=== PATIENT | female | born 1980 | race Caucasian/White ===

== ENCOUNTER → 2018-08-16 13:08 | Outpatient (CLI) | payer OTHER, SELFPAY | PROVIDERS: Visit Provider Physician Assistant | DX: J02.9 Acute pharyngitis, unspecified (principal) | CPT/HCPCS: 87070 ==

== ENCOUNTER 2020-05-26 10:01 | Emergency (ER) | payer OTHER, SELFPAY ==
[2020-05-26] VITALS (8 sets, daily range): BP systolic 128–186; BP diastolic 80–118; PULSE 95–118; RESP 10–37; TEMP 37.1; O2SAT 98–100; BMI 20.9
--- NOTE | 2020-05-26 10:20 | ED.ARRPALP ---
HPI - Arrhythmia/Palpitations <MYCHAL Morfin - Last Filed: 05/26/20 15:52> General Chief Complaint: Arrhythmia/Palpitations Stated Complaint: High Blood pressure.. Time Seen by Provider: 05/26/20 10:03 Source: patient Mode of arrival: Ambulatory History of Present Illness HPI narrative: 39yo female presents to the ED for increased anxiety, shaking, heart racing, and nauseated for the past 4 days. 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 She states she feels like her heart is beating fast, does not feel extra beats. She feels nauseated whenever she tries to eat, she states she has lost 6 lb in the past 4 days because she has not been hungry. Patient states in the past she had pre hypertension but after losing weight that problem disappeared. She has had some increased stress over the past 3 weeks due to son who has been in the , however she does not feel that this week is particularly more stressful. She denies any cardiac or thyroid history. Patient denies any fevers, chills, vomiting, abdominal pain, dizziness, cough, shortness of breath, or any other concerns. She states she is currently taking an oral control pill, unsure of the name. She denies any history of blood clots or long trips. Related Data Home Medications Medication Instructions Recorded Confirmed [ control] #0 02/08/16 08/16/18 propranolol 40 mg PO #0 08/26/16 08/16/18 Allergies Allergy/AdvReac Type Severity Reaction Status Date / Time amoxicillin [AMOXICILLIN] Allergy Mild SORES IN Verified 05/26/20 10:14 MOUTH meloxicam [MELOXICAM] Allergy Unknown Verified 05/26/20 10:14 Penicillins [PENICILLINS] Allergy Unknown Verified 05/26/20 10:14 Review of Systems <MYCHAL Morfin - Last Filed: 05/26/20 15:52> Review of Systems Narrative: REVIEW OF SYSTEMS: GENERAL: Denies fevers. HENT: No head trauma or hearing loss. CARDIOVASCULAR: Reports heart is beating fast, see HPI. RESPIRATORY: No shortness of breath. No cough. GASTROINTESTINAL: No nausea, vomiting, diarrhea, or constipation. MUSCULOSKELETAL: No weakness or injury. INTEGUMENTARY: No rash. Patient History <MYCHAL Morfin - Last Filed: 05/26/20 15:52> Medical History No significant medical problems Social History Smoking Status: Former smoker Smoking Status: Former smoker alcohol intake frequency: 0-2 drinks per day Alcohol type: wine Substance Use Type: does not use Exam <MYCHAL Morfin - Last Filed: 05/26/20 15:52> Initial Vital Signs Initial Vital Signs: Vital Signs Pulse Rate 116 H 05/26/20 10:10 Blood Pressure 162/97 H 05/26/20 10:10 Pulse Oximetry 100 05/26/20 10:10 PHYSICAL EXAMINATION: GENERAL: Awake and alert. Anxious appearing, tearful. HENT: Normocephalic, atraumatic. EYES: Conjunctiva pink, sclera white, no periorbital swelling. No discharge. CHEST: Normal to inspection and without deformities. CARDIOVASCULAR: S1 and S2 sounds normal. Increased rate, regular rhythm, no murmurs, clicks, or bruits. RESPIRATORY: Normal respiratory rate, trachea midline, airway patent. No stridor, nasal flaring or accessory muscle use. Able to speak in full sentences. Lungs are clear in all bo[place] without wheeze, rhonchi, or crackles. MUSCULOSKELETAL: Normal gait and coordination. Equal tone and mass bilaterally. EXTREMITIES: Moves all extremities. SKIN: Warm, dry, soft, appropriate color for ethnicity. No lesions, rashes, or wounds to visualized areas. NEURO: Alert and Oriented X 3. Good coordination. No ataxia or cognitive issues. PSYCH: Appropriate affect and mood. <Denzel Mast DO - Last Filed: 05/26/20 17:23> Initial Vital Signs Initial Vital Signs: Vital Signs Pulse Rate 116 H 05/26/20 10:10 Blood Pressure 162/97 H 05/26/20 10:10 Pulse Oximetry 100 05/26/20 10:10 Scores <MYCHAL Morfin - Last Filed: 05/26/20 15:52> PERC Score Age greater than or equal to 50 years: No Heart rate greater than or equal to 100 bpm: Yes Room Air O2 Sat less than 95%: No Unilateral leg swelling: No Recent trauma or surgery: No Hemoptysis: No Prior PE or DVT: No Hormone Use: Yes Total PERC Score: 2 Wells' Criteria for PE Clinical signs and symptoms of DVT: No PE is #1 Dx or equally likely: No Heart rate > 100: Yes Immobilization at least 3 days or surg in previous 4 weeks: No History of PE or DVT: No Hemoptysis: No Malignancy w/Treatment within 6 months or palliative: No Wells' PE Score total: 1.5 Course <Stacey HarrisMYCHAL - Last Filed: 05/26/20 15:52> Course Course Narrative: Over the course of her stay in the emergency department patient states she felt better. She states she felt more relaxed and her heart was not racing. Patient was updated on laboratory results which were normal, patient states she feels much better knowing this. Orders Ordered: ED Orders 05/26/20 10:17 Complete Blood Count AUTO DIFF Stat Comprehensive Metabolic Panel Stat D Dimer Stat Lipase Stat Thyroid Stimulating Hormone Stat Troponin & CK Cardiac Panel Stat 05/26/20 10:19 XR chest 1V Stat EKG-12 Lead Stat Discontinued Medications Sodium Chloride (Normal Saline 0.9%) 1,000 mls @ 1,000 mls/hr IV BOLUS ONE Stop: 05/26/20 11:18 Last Infusion: 05/26/20 11:35 Dose: 0 mls/hr Documented by: Admin: 05/26/20 10:28 Dose: 1,000 mls/hr Documented by: ENMANUEL Consultations Consultation #1: Patient staffed with Dr. Mast discussed test, test results, plan of care. Vital Signs Vital signs: Vital Signs - 8 hr 05/26/20 10:10 05/26/20 10:12 05/26/20 10:28 Temperature 98.7 F Pulse Rate 116 H 118 H 104 H Respiratory Rate 20 37 H Blood Pressure 162/97 H 186/118 H 162/97 H Pulse Oximetry 100 98 98 05/26/20 10:30 05/26/20 10:52 05/26/20 11:00 Temperature Pulse Rate 107 H 105 H 98 H Respiratory Rate 10 L Blood Pressure 160/87 H Pulse Oximetry 99 100 99 05/26/20 11:01 05/26/20 11:35 Temperature Pulse Rate 102 H 95 H Respiratory Rate Blood Pressure 142/80 H 128/89 Pulse Oximetry 99 99 <Denzel Mast DO - Last Filed: 05/26/20 17:23> Orders Ordered: ED Orders 05/26/20 10:17 Complete Blood Count AUTO DIFF Stat Comprehensive Metabolic Panel Stat D Dimer Stat Lipase Stat Thyroid Stimulating Hormone Stat Troponin & CK Cardiac Panel Stat 05/26/20 10:19 XR chest 1V Stat EKG-12 Lead Stat Discontinued Medications Sodium Chloride (Normal Saline 0.9%) 1,000 mls @ 1,000 mls/hr IV BOLUS ONE Stop: 05/26/20 11:18 Last Infusion: 05/26/20 11:35 Dose: 0 mls/hr Documented by: Admin: 05/26/20 10:28 Dose: 1,000 mls/hr Documented by: ENMANUEL Vital Signs Vital signs: Vital Signs - 8 hr 05/26/20 10:10 05/26/20 10:12 05/26/20 10:28 Temperature 98.7 F Pulse Rate 116 H 118 H 104 H Respiratory Rate 20 37 H Blood Pressure 162/97 H 186/118 H 162/97 H Pulse Oximetry 100 98 98 05/26/20 10:30 05/26/20 10:52 05/26/20 11:00 Temperature Pulse Rate 107 H 105 H 98 H Respiratory Rate 10 L Blood Pressure 160/87 H Pulse Oximetry 99 100 99 05/26/20 11:01 05/26/20 11:35 Temperature Pulse Rate 102 H 95 H Respiratory Rate Blood Pressure 142/80 H 128/89 Pulse Oximetry 99 99 MDM - Arrhythmia/Palpitations <MYCHAL Morfin - Last Filed: 05/26/20 15:52> Medical Records Attestation: I reviewed the patient's medical records. Lab Data Attestation: I reviewed the patient's lab results. Result diagrams: 05/26/20 10:17 05/26/20 10:17 Labs: Lab Results 05/26/20 05/26/20 05/26/20 Range/Units 10:17 10:17 10:17 WBC 9.4 (4.5-11.0) X10^3/uL RBC 4.69 (4.0-5.2) X10^6/uL Hgb 14.7 (12.0-16.0) g/dL Hct 43.7 (36-46) % MCV 93.2 (80-100) fL MCH 31.4 (26-34) PG MCHC 33.7 (30-36) % RDW 12.0 (11.6-14.8) % Plt Count 294 (150-400) X10^3/uL Neut % (Auto) 66.8 (50-75) % Lymph % (Auto) 25.4 (25-40) % Isabela % (Auto) 6.6 (3-14) % Eos % (Auto) 0.5 L (2-4) % Baso % (Auto) 0.7 (0-2) % Neut # (Auto) 6300 (7299-3563) /uL Lymph # (Auto) 2400 (9081-1804) /uL Isabela # (Auto) 600 (0-900) /uL Eos # (Auto) 0 (0-450) /uL Baso # (Auto) 100 (0-100) /uL D-Dimer < 200 (<230) ng/mL Sodium 135 L (137-145) mmol/L Potassium 3.9 (3.4-5.1) mmol/L Chloride 100 (98-107) mmol/L Carbon Dioxide 27 (22-32) mmol/L BUN 14 (7-17) mg/dL Creatinine 0.74 (0.52-1.04) mg/dL Estimated GFR > 60.0 (>60) mL/min BUN/Creatinine Ratio 18.9 (6-22) Glucose 123 H (70-100) mg/dL Calcium 10.4 H (8.4-10.2) mg/dL Total Bilirubin 1.3 (0.2-1.3) mg/dL AST 33 (14-36) IU/L ALT 26 (<35) IU/L Alkaline Phosphatase 76 (38-126) U/L Total Creatine Kinase 106 (30-135) U/L CK-MB (CK-2) 0.71 (<2.37) ng/mL CK-MB (CK-2) Rel Index 0.7 L (1.5-5.0) % Troponin I < 0.012 (0.01-0.034) ng/mL Total Protein 8.8 H (6.3-8.2) g/dL Albumin 5.1 H (3.5-5.0) g/dL Globulin 3.7 (1.7-4.1) g/dL Albumin/Globulin Ratio 1.4 (1.0-2.8) Lipase 106 (23-300) U/L TSH (0.47-4.68) uIU/mL 05/26/20 Range/Units 10:17 WBC (4.5-11.0) X10^3/uL RBC (4.0-5.2) X10^6/uL Hgb (12.0-16.0) g/dL Hct (36-46) % MCV (80-100) fL MCH (26-34) PG MCHC (30-36) % RDW (11.6-14.8) % Plt Count (150-400) X10^3/uL Neut % (Auto) (50-75) % Lymph % (Auto) (25-40) % Isabela % (Auto) (3-14) % Eos % (Auto) (2-4) % Baso % (Auto) (0-2) % Neut # (Auto) (9700-5516) /uL Lymph # (Auto) (2649-6862) /uL Isabela # (Auto) (0-900) /uL Eos # (Auto) (0-450) /uL Baso # (Auto) (0-100) /uL D-Dimer (<230) ng/mL Sodium (137-145) mmol/L Potassium (3.4-5.1) mmol/L Chloride (98-107) mmol/L Carbon Dioxide (22-32) mmol/L BUN (7-17) mg/dL Creatinine (0.52-1.04) mg/dL Estimated GFR (>60) mL/min BUN/Creatinine Ratio (6-22) Glucose (70-100) mg/dL Calcium (8.4-10.2) mg/dL Total Bilirubin (0.2-1.3) mg/dL AST (14-36) IU/L ALT (<35) IU/L Alkaline Phosphatase (38-126) U/L Total Creatine Kinase (30-135) U/L CK-MB (CK-2) (<2.37) ng/mL CK-MB (CK-2) Rel Index (1.5-5.0) % Troponin I (0.01-0.034) ng/mL Total Protein (6.3-8.2) g/dL Albumin (3.5-5.0) g/dL Globulin (1.7-4.1) g/dL Albumin/Globulin Ratio (1.0-2.8) Lipase (23-300) U/L TSH 0.653 (0.47-4.68) uIU/mL Urine Dip Bedside Urine Glucose 100 mg/dl Bedside Urine Bilirubin - Negative Bedside Urine Ketone + 15 Urine Specific [place] 1.030 Bedside Urine Occult Blood - Negative Bedside Urine pH 6.0 Bedside Urine Protein +/- 15 Bedside Urine Urobilinogen - Negative Bedside Urine Nitrite - Negative Bedside Urine Leukocytes - Negative Esterase Imaging Data Chest x-ray: Radiologist's Impresson: [address] [id number] ReportSigned Patient: Emerita Brito EMR#: [id number]: [id number]:[id number]/Sex: 39 / FDate of Service: 05/26/20Loc: EDAccession Number: [id number] Procedure: XR chest 1V Ordering Provider: Stacey Harris PROCEDURE: XR CHEST 1V INDICATIONS: chest pain TECHNIQUE: One view of the chest was acquired. COMPARISON: None. FINDINGS: Surgical changes and devices: None. Lungs and pleura: On this examination that is presumably performed supine, no large pneumothorax or large pleural effusions are seen. No focal areas of lung consolidation are seen. Mediastinum: Mediastinal contours appear normal. Heart size is normal. Bones and chest wall: No suspicious bony lesions. Overlying soft tissues appear unremarkable. IMPRESSION: Portable chest within normal limits. Dictated by: David Doyle M.D. on 05/26/2020 at 9:40 Approved by: David Doyle M.D. on 05/26/2020 at 9:40 ECG Data Interpretation: 1017: Sinus rhythm, rate 83, MO interval 138, QTC 418. No ST elevation or ST depression. T-wave inversion noted in V1. No ectopy EKG also viewed by Dr. Mast per protocol. MDM Narrative Medical decision making narrative: 39-year-old female, fairly healthy, presents emergency department for feeling ?wound up in that her heart is racing. I suspect this is most likely related to anxiety given current situation. May also be related to thyroid function however, TSH is on the low end of normal at 0.653, which does not require emergency treatment at this time. Discussed with patient that she should follow up with her PCP regarding this as further testing may be needed. Patient initially presented with tachycardia, D-dimer ordered which was negative. She is lower risk, this is sufficient to help rule out DVT as PERC score is 1. Additionally, heart rate decreased to within normal limits after administration of fluid and hearing normal test results. Less likely ACS as EKG is non-remarkable, chest x-ray negative, troponin is negative. Additionally, patient did not have any chest pain. No ectopy seen on EKG. No signs of infection such as white count, pain, or fevers. Less concern for acute abdominal etiology given lack of abdominal pain, no vomiting, and tachycardia returning to normal after fluids and reassurance. Return precautions given for new or worsening symptoms. She was encouraged to follow up closely with her PCP. Patient was agreeable to plan, verbalized understanding. <Denzel Mast, DO - Last Filed: 05/26/20 17:23> Lab Data Labs: Lab Results 05/26/20 05/26/20 05/26/20 Range/Units 10:17 10:17 10:17 WBC 9.4 (4.5-11.0) X10^3/uL RBC 4.69 (4.0-5.2) X10^6/uL Hgb 14.7 (12.0-16.0) g/dL Hct 43.7 (36-46) % MCV 93.2 (80-100) fL MCH 31.4 (26-34) PG MCHC 33.7 (30-36) % RDW 12.0 (11.6-14.8) % Plt Count 294 (150-400) X10^3/uL Neut % (Auto) 66.8 (50-75) % Lymph % (Auto) 25.4 (25-40) % Isabela % (Auto) 6.6 (3-14) % Eos % (Auto) 0.5 L (2-4) % Baso % (Auto) 0.7 (0-2) % Neut # (Auto) 6300 (3655-0690) /uL Lymph # (Auto) 2400 (9914-9016) /uL Isabela # (Auto) 600 (0-900) /uL Eos # (Auto) 0 (0-450) /uL Baso # (Auto) 100 (0-100) /uL D-Dimer < 200 (<230) ng/mL Sodium 135 L (137-145) mmol/L Potassium 3.9 (3.4-5.1) mmol/L Chloride 100 (98-107) mmol/L Carbon Dioxide 27 (22-32) mmol/L BUN 14 (7-17) mg/dL Creatinine 0.74 (0.52-1.04) mg/dL Estimated GFR > 60.0 (>60) mL/min BUN/Creatinine Ratio 18.9 (6-22) Glucose 123 H (70-100) mg/dL Calcium 10.4 H (8.4-10.2) mg/dL Total Bilirubin 1.3 (0.2-1.3) mg/dL AST 33 (14-36) IU/L ALT 26 (<35) IU/L Alkaline Phosphatase 76 (38-126) U/L Total Creatine Kinase 106 (30-135) U/L CK-MB (CK-2) 0.71 (<2.37) ng/mL CK-MB (CK-2) Rel Index 0.7 L (1.5-5.0) % Troponin I < 0.012 (0.01-0.034) ng/mL Total Protein 8.8 H (6.3-8.2) g/dL Albumin 5.1 H (3.5-5.0) g/dL Globulin 3.7 (1.7-4.1) g/dL Albumin/Globulin Ratio 1.4 (1.0-2.8) Lipase 106 (23-300) U/L TSH (0.47-4.68) uIU/mL 05/26/20 Range/Units 10:17 WBC (4.5-11.0) X10^3/uL RBC (4.0-5.2) X10^6/uL Hgb (12.0-16.0) g/dL Hct (36-46) % MCV (80-100) fL MCH (26-34) PG MCHC (30-36) % RDW (11.6-14.8) % Plt Count (150-400) X10^3/uL Neut % (Auto) (50-75) % Lymph % (Auto) (25-40) % Isabela % (Auto) (3-14) % Eos % (Auto) (2-4) % Baso % (Auto) (0-2) % Neut # (Auto) (1844-7135) /uL Lymph # (Auto) (3620-9523) /uL Isabela # (Auto) (0-900) /uL Eos # (Auto) (0-450) /uL Baso # (Auto) (0-100) /uL D-Dimer (<230) ng/mL Sodium (137-145) mmol/L Potassium (3.4-5.1) mmol/L Chloride (98-107) mmol/L Carbon Dioxide (22-32) mmol/L BUN (7-17) mg/dL Creatinine (0.52-1.04) mg/dL Estimated GFR (>60) mL/min BUN/Creatinine Ratio (6-22) Glucose (70-100) mg/dL Calcium (8.4-10.2) mg/dL Total Bilirubin (0.2-1.3) mg/dL AST (14-36) IU/L ALT (<35) IU/L Alkaline Phosphatase (38-126) U/L Total Creatine Kinase (30-135) U/L CK-MB (CK-2) (<2.37) ng/mL CK-MB (CK-2) Rel Index (1.5-5.0) % Troponin I (0.01-0.034) ng/mL Total Protein (6.3-8.2) g/dL Albumin (3.5-5.0) g/dL Globulin (1.7-4.1) g/dL Albumin/Globulin Ratio (1.0-2.8) Lipase (23-300) U/L TSH 0.653 (0.47-4.68) uIU/mL Urine Dip Bedside Urine Glucose 100 mg/dl Bedside Urine Bilirubin - Negative Bedside Urine Ketone + 15 Urine Specific [place] 1.030 Bedside Urine Occult Blood - Negative Bedside Urine pH 6.0 Bedside Urine Protein +/- 15 Bedside Urine Urobilinogen - Negative Bedside Urine Nitrite - Negative Bedside Urine Leukocytes - Negative Esterase Discharge Plan Departure Patient Disposition: Home Clinical Impression: Heart palpitations Activity Restrictions/Additional Instructions: Thank you for entrusting me with your care today. As discussed, your chest x-ray, urine, and EKG are non-remarkable. There are no signs of infection, cardiac issues, electrolyte abnormalities, signs of blood clots, or signs of digestive organ issues. Your thyroid hormone was slightly low but still within normal limits at 0.653. I suggest you follow-up with your primary care provider in the next 1-2 weeks for further evaluation. Return emergency department for any new or worsening symptoms. Prescriptions: No Action [ control] Qty: 0 RF: 0 propranolol 40 MG tablet 40 mg PO Qty: 0 RF: 0 <Denzel Mast DO - Last Filed: 05/26/20 17:23> Cosign ED Attending Cosignature Attestation: I was immediately available in the department for consultation. This documentation has been reviewed and I agree with assessment and plan. Supervised by Denzel Mast DO
--- NOTE | 2020-05-26 10:20 | PC.NURSE ---
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 patient reports since friday feeling her heart rate was too fast, unable to eat lost 6lbs this week. Reports feeling scatter brained I feel like I have had 20 shots of coffee. Patient states no new stressors since Friday but has had increase stress regarding her son who is marine [employer]. Denies chest pain or SOB.
[2020-05-26 10:26] LABS: Add Manual Diff / Slide Review NO; Basophils Absolute Auto 100 /uL (0-100); Basophils Percent Auto 0.7 % (0-2); Eosinophils Absolute Auto 0 /uL (0-450); Eosinophils Percent Auto 0.5 % (2-4); Hematocrit 43.7 % (36-46); Hemoglobin 14.7 g/dL (12.0-16.0); Lymphocytes Absolute Auto 2400 /uL (1100-4500); Lymphocytes Percent Auto 25.4 % (25-40); Mean Corpuscular HGB Conc 33.7 % (30-36); Mean Corpuscular Hemoglobin 31.4 PG (26-34); Mean Corpuscular Volume 93.2 fL (80-100); Monocytes Absolute Auto 600 /uL (0-900); Monocytes Percent Auto 6.6 % (3-14); Neutrophils Absolute Auto 6300 /uL (1500-7000); Neutrophils Percent Auto 66.8 % (50-75); Platelet Count 294 X10^3/uL (150-400); Red Blood Cell Count 4.69 X10^6/uL (4.0-5.2); White Blood Cell Count 9.4 X10^3/uL (4.5-11.0)
[2020-05-26] MEDS: SODIUM CHLORIDE 0.9% 1,000 ML 1000 ML IV (10:28)
[2020-05-26 10:39] LABS: Alanine Aminotransferase 26 IU/L (<35); Albumin 5.1 g/dL (3.5-5.0); Albumin Globulin Ratio 1.4 (1.0-2.8); Alkaline Phosphatase 76 U/L (38-126); Aspartate Aminotransferase 33 IU/L (14-36); BUN Creatinine Ratio 18.9 (6-22); Bilirubin Total 1.3 mg/dL (0.2-1.3); Blood Urea Nitrogen 14 mg/dL (7-17); Calcium 10.4 mg/dL (8.4-10.2); Carbon Dioxide 27 mmol/L (22-32); Chloride 100 mmol/L (98-107); Creatine Kinase 106 U/L (30-135); D Dimer < 200 ng/mL (<230); Estimated Glomerular Filt Rate > 60.0 mL/min (>60); Globulin 3.7 g/dL (1.7-4.1); Glucose 123 mg/dL (70-100); HEMOLYSIS < 15 (0-50); Lipase 106 U/L (23-300); Potassium 3.9 mmol/L (3.4-5.1); Sodium 135 mmol/L (137-145); Total Protein 8.8 g/dL (6.3-8.2)
[2020-05-26 10:50] LABS: Troponin I < 0.012 ng/mL (0.01-0.034)
[2020-05-26 10:54] LABS: CKMB % Relative Index 0.7 % (1.5-5.0); Creatine Kinase MB 0.71 ng/mL (<2.37)
[2020-05-26 11:19] LABS: Thyroid Stimulating Hormone 0.653 uIU/mL (0.47-4.68)
== END 2020-05-26 11:36 | disposition home or self-care (01) ==
PROVIDERS: Emergency Provider Nurse Practitioner; Referring Provider Nurse Practitioner
DX: R00.2 Palpitations (principal); R07.9 Chest pain, unspecified; R00.0 Tachycardia, unspecified; R11.0 Nausea; F41.9 Anxiety disorder, unspecified
CPT/HCPCS: 36415; 71045; 80053; 81003; 82550; 82553; 83690; 84443; 84484; 85025; 85379; 93005; 93010; 96360; 99283; 99284